=== PATIENT | male | born 1985 | race Caucasian/White ===

== ENCOUNTER 2021-08-17 22:08 | Emergency (ER) | payer OTHER ==
[~2021-08-17] VITALS: Ht 185.4 cm; Wt 74.8 kg
[2021-08-17 23:40] VITALS: BP 122/86
[2021-08-17] MEDS ORDERED: PRED50TA PO (23:58)
[2021-08-17] MEDS ORDERED: HYDR-4275 PO (23:58)
[2021-08-18] MEDS ORDERED: predniSONE 20 MG TABLET PO ONE
[2021-08-18] MEDS ORDERED: HYDROCODONE/APAP 5/325MG TABLET PO ONE
[2021-08-18] MEDS ORDERED: HYDROCODONE/APAP 5/325MG TABLET ONE (00:04)
[2021-08-18] MEDS ORDERED: predniSONE 20 MG TABLET ONE (00:05)
--- NOTE | 2021-08-18 00:15 | NUR ---
Patient discharged to home in stable condition. RX Written and verbal after care instructions given. Patient verbalizes understanding of instruction. PT ambulatory with a steady gait
== END 2021-08-18 00:15 | disposition home or self-care (01) ==
LOC: ER 22:08
DX: M54.16 Radiculopathy, lumbar region (principal); Z60.2 Problems related to living alone
CPT/HCPCS: 99283; J7512